=== PATIENT | female | born 1940 | race Caucasian/White ===

== ENCOUNTER 2018-03-01 07:58 | Emergency (ER) | payer MEDICARE, BC ==
[2018-03-01] MEDS: Nitroglycerin 0.4 MG Tab.SL SL ONE (08:14)
[2018-03-01] MEDS ORDERED: Sodium Chloride 0.9% 10 ML Syringe FLUSH PRN (08:20)
--- NOTE | 2018-03-01 08:44 | EDM.PDOC ---
ED HPI GENERAL MEDICAL PROBLEM - General Chief Complaint: Chest Pain Stated Complaint: CHEST PAIN Time Seen by Provider: 03/01/18 08:12 Source of Information: Reports: Patient, Family, RN, RN Notes Reviewed History Limitations: Reports: No Limitations - History of Present Illness INITIAL COMMENTS - FREE TEXT/NARRATIVE: Patient presents to the ED at [facility] with a 5 day history of on/off chest pain. She states it is upper left chest, bilateral jaw and left arm. She states it has progressively gotten worse. Last evening, it was worse. She took 4 baby ASA. This morning around 5:30, she awoke to the persistent pain. She states she took a "pain pill" and it seems to be somewhat better. No SOB. Patient denies any N/V/D. No focal neurological complaints. Onset: Gradual Onset Date: 02/25/18 Duration: Waxing/Waning Location: Reports: Chest Quality: Reports: Pressure Severity: Mild Upper Chest Pain Score (Numeric/FACES): 2 - Related Data Allergies Allergy/AdvReac Type Severity Reaction Status Date / Time [id number]-Nga-Khl Reductase AdvReac Joint Pain Verified 03/01/18 09:49 Inhibitor Home Meds: Home Meds Aspirin [Adult Low Dose Aspirin EC] 81 mg PO DAILY 11/06/13 [History] Clopidogrel [Plavix] 75 mg PO DAILY 11/06/13 [History] Hydrocodone/Acetaminophen [Lorcet 10-650 Tablet] 1 each PO BEDTIME PRN 11/06/13 [History] Metoprolol Tartrate 12.5 mg PO BID 11/06/13 [History] Omeprazole [Prilosec] 20 mg PO DAILY PRN 11/06/13 [History] Lisinopril 0.5 tab PO DAILY 04/03/14 [History] Amoxicillin 500 mg PO TID #15 tab 02/14/15 [Rx] Social & Family History - Tobacco Use Smoking Status *Q: Never Smoker - Alcohol Use Days Per Week of Alcohol Use: 0 - Recreational Drug Use Recreational Drug Use: No ED ROS GENERAL - Review of Systems Review Of Systems: See Below Constitutional: Denies: Fever, Chills, Weakness Respiratory: Denies: Shortness of Breath, Cough Cardiovascular: Reports: Chest Pain. Denies: Lightheadedness, Palpitations GI/Abdominal: Denies: Abdominal Pain, Nausea, Vomiting Skin: Reports: No Symptoms Neurological: Reports: No Symptoms. Denies: Dizziness, Headache, Numbness, Paresthesia, Tingling ED EXAM, GENERAL - Physical Exam Exam: See Below Exam Limited By: No Limitations General Appearance: Alert, No Apparent Distress Respiratory/Chest: No Respiratory Distress, Lungs Clear, Normal Breath Sounds Cardiovascular: Normal Peripheral Pulses, Regular Rate, Rhythm Peripheral Pulses: 2+: Radial (L), Radial (R) GI/Abdominal: Normal Bowel Sounds, Soft, Non-Tender Neurological: Alert, Oriented Skin Exam: Warm, Dry, Intact, Normal Color EKG INTERPRETATION EKG Date: 03/01/18 Time: 08:04 Rhythm: NSR Rate (Beats/Min): 85 [place]: Normal P-Wave: Present QRS: Normal ST-T: Normal QT: Normal RI/PQ Interval: 0.13 Comparison: No Change EKG Interpretation Comments: 1. Sinus Rhythm 2. IWMI, probably old Course - Vital Signs Last Recorded V/S: Last Vital Signs Temp 35.8 C 03/01/18 07:58 Pulse 84 03/01/18 08:45 Resp 16 03/01/18 08:20 BP 102/65 03/01/18 08:45 Pulse Ox 97 03/01/18 07:58 - Orders/Labs/Meds Orders: Active Orders 24 hr Category Date Time Status EKG 12 Lead [EKG Documentation Completion] [RC] STAT Care 03/01/18 08:19 Active Chest 2V [CR] Stat Exams 03/01/18 08:21 Taken Heparin Sodium Med 03/01/18 09:50 Once 4,000 units IVPUSH .BOLUS ONE Sodium Chloride 0.9% [Saline Flush] Med 03/01/18 08:20 Active 10 ml FLUSH ASDIRECTED PRN Peripheral IV Insertion Adult [OM.PC] Routine Oth 03/01/18 08:20 Ordered Medication Orders Heparin Sodium (Porcine) (Heparin Sodium) 4,000 units IVPUSH .BOLUS ONE Stop: 03/01/18 09:51 Sodium Chloride (Saline Flush) 10 ml FLUSH ASDIRECTED PRN PRN Reason: Keep Vein Open Labs: Laboratory Tests 03/01/18 03/01/18 Range/Units 08:28 08:28 WBC 10.0 (4.0-10.0) x10^3/uL RBC 4.35 (4.00-5.50) x10^6/uL Hgb 11.5 L D (12.0-16.0) g/dL Hct 36.2 (33.0-47.0) % MCV 83.2 D (78.0-93.0) fL MCH 26.4 (26.0-32.0) pg MCHC 31.8 L (32.0-36.0) g/dL RDW Coeff of Sil 16.7 H (10.0-15.0) % Plt Count 289 (130-400) x10^3/uL Neut % (Auto) 55.4 (50.0-80.0) % Lymph % (Auto) 26.6 (25.0-50.0) % [place] % (Auto) 10.3 (2.0-11.0) % Eos % (Auto) 7.0 H (0.0-4.0) % Baso % (Auto) 0.7 (0.2-1.2) % Sodium 140 (136-145) mmol/L Potassium 4.1 (3.5-5.1) mmol/L Chloride 106 (98-107) mmol/L Carbon Dioxide 24 (21-32) mmol/L Anion Gap 14.1 BUN 13 (7-18) mg/dL Creatinine 0.7 (0.55-1.02) mg/dL Est Cr Clr Drug Dosing TNP Estimated GFR (MDRD) > 60 Glucose 127 H (74-106) mg/dL Calcium 9.2 (8.5-10.1) mg/dL Corrected Calcium 9.84 (8.5-10.1) mg/dL Magnesium 2.1 (1.8-2.4) mg/dL Total Bilirubin 0.3 (0.2-1.0) mg/dL AST 17 (15-37) U/L ALT 17 (14-59) U/L Alkaline Phosphatase 151 H (46-116) U/L Creatine Kinase 40 (26-192) U/L Troponin I < 0.017 (<=0.056) ng/mL Total Protein 6.8 (6.4-8.2) g/dL Albumin 3.2 L (3.4-5.0) g/dL Globulin 3.6 Albumin/Globulin Ratio 0.89 Meds: Medications Generic Name Dose Route Start Last Admin Trade Name Freq PRN Reason Stop Dose Admin Heparin Sodium (Porcine) 4,000 units 03/01/18 09:50 Heparin Sodium IVPUSH 03/01/18 09:51 .BOLUS ONE Sodium Chloride 10 ml 03/01/18 08:20 Saline Flush FLUSH ASDIRECTED PRN Keep Vein Open Discontinued Medications Generic Name Dose Route Start Last Admin Trade Name Freq PRN Reason Stop Dose Admin Nitroglycerin 0.4 mg 03/01/18 08:20 Nitrostat SL 03/01/18 08:21 ONETIME ONE - Radiology Interpretation Free Text/Narrative:: CXR: No acute process - see scanned report in EMR Departure - Departure Time of Disposition: 09:57 Disposition: DC/Tfer to Acute Hospital 02 Reason for Transfer *Q: Other Condition: Good Clinical Impression: Unstable angina Chest pain Qualifiers: Chest pain type: unspecified Qualified Code(s): R07.9 - Chest pain, unspecified Forms: Interfacility Transfer [facility] ED Communication - ED Communication Date/Time Date: 03/01/18 Time Called: 09:40 - Discussed Case With (1) Discussed Case With (1): Admitting Provider (Dr. Zacarias, Cardiology. Report given. Patient accepted in transfer.) - Conversation Summary Admitting Provider Agreed to Patient's Admission: Yes Patient Aware of Amendments fo Care Plan: Yes - Problem List Review Problem List Initiated/Reviewed/Updated: Yes - My Orders Last 24 Hours: My Active Orders 03/01/18 08:19 EKG 12 Lead [EKG Documentation Completion] [RC] STAT 03/01/18 08:20 Sodium Chloride 0.9% [Saline Flush] 10 ml FLUSH ASDIRECTED PRN Peripheral IV Insertion Adult [OM.PC] Routine 03/01/18 08:21 Chest 2V [CR] Stat 03/01/18 09:50 Heparin Sodium 4,000 units IVPUSH .BOLUS ONE - Assessment/Plan Last 24 Hours: My Active Orders 03/01/18 08:19 EKG 12 Lead [EKG Documentation Completion] [RC] STAT 03/01/18 08:20 Sodium Chloride 0.9% [Saline Flush] 10 ml FLUSH ASDIRECTED PRN Peripheral IV Insertion Adult [OM.PC] Routine 03/01/18 08:21 Chest 2V [CR] Stat 03/01/18 09:50 Heparin Sodium 4,000 units IVPUSH .BOLUS ONE Assessment:: Unstable Angina Chest Pain r/o DC Plan: Case discussed with Dr. Zacarias, Cardiology. Patient will be sent to [facility] for cardiac cath today. Report given. Patient accepted in transfer. Patient will be sent via [facility] ground.
[2018-03-01 09:07] LABS: CHLORIDE,CL 106 mmol/L (98-107); SODIUM,NA 140 mmol/L (136-145)
[2018-03-01 10:13] VITALS: BP 140/87
[2018-03-01] MEDS: Heparin Sodium 5,000 Units/ML Vial IVPUSH ONE (10:13)
== END 2018-03-01 10:45 | disposition short-term general hospital (02) ==
LOC: VM.ED 07:58
DX: I20.0 Unstable angina (principal); Z88.8 Allergy status to other drugs, medicaments and biological substances; Z79.82 Long term (current) use of aspirin; Z79.899 Other long term (current) drug therapy
CPT/HCPCS: 36415; 71046; 80053; 82550; 83735; 84484; 85025; 93005; 96374; 99285; J1644

== ENCOUNTER 2022-08-28 14:42 | Emergency (ER) | payer MEDICARE, BC ==
[2022-08-28 14:55] VITALS: BP 123/74; PULSE 97
== END 2022-08-28 15:47 | disposition home or self-care (01) ==
LOC: VM.ED 14:42
DX: U07.1 COVID-19 (principal); I25.10 Atherosclerotic heart disease of native coronary artery without angina pectoris; I10 Essential (primary) hypertension; I25.2 Old myocardial infarction; Z79.82 Long term (current) use of aspirin; Z79.02 Long term (current) use of antithrombotics/antiplatelets; Z86.16 Personal history of COVID-19
CPT/HCPCS: 87651; 99283; U0002

== ENCOUNTER 2024-05-13 14:09 | Emergency (ER) | payer MEDICARE, BC ==
[2024-05-13] MEDS: Aspirin 81 MG Tab.Chew PO ONE (14:15)
[2024-05-13] MEDS ORDERED: Sodium Chloride 0.9% 10 ML Syringe FLUSH PRN (14:23)
[2024-05-13] MEDS: Nitroglycerin 0.4 MG Tab.SL SL ONE (14:26)
[2024-05-13 14:33] LABS: BASOPHILS ABSOLUTE AUTO 0.1 x10^3/uL (0.0-0.2); BASOPHILS PERCENT AUTO 0.4 % (0.2-1.2); EOSINOPHILS ABSOLUTE AUTO 0.4 x10^3/uL (0.0-0.5); EOSINOPHILS PERCENT AUTO 2.5 % (0.0-4.0); HEMATOCRIT 39.1 % (33.0-47.0); HEMOGLOBIN 12.4 g/dL (12.0-16.0); IMMATURE GRAN ABSOLUTE AUTO 0.05 x10^3/uL (0.00-0.07); LYMPHOCYTES ABSOLUTE AUTO 4.7 x10^3/uL (1.0-4.8); LYMPHOCYTES PERCENT AUTO 32.7 % (25.0-50.0); MEAN CORPUSCULAR HEMOGLOBIN 28.4 pg (26.0-32.0); MEAN CORPUSCULAR HGB CONC 31.7 g/dL (32.0-36.0); MEAN CORPUSCULAR VOLUME 89.5 fL (78.0-93.0); MONOCYTES ABSOLUTE AUTO 1.6 x10^3/uL (0.0-0.8); NEUTROPHILS ABSOLUTE AUTO 7.5 x10^3/uL (1.8-7.7); NEUTROPHILS PERCENT AUTO 52.6 % (50.0-80.0); PLATELET COUNT,PLT 247 x10^3/uL (130-400); RED BLOOD CELL COUNT 4.37 x10^6/uL (4.00-5.50); WHITE BLOOD CELL COUNT,WBC 14.2 x10^3/uL (4.0-10.0)
[2024-05-13 14:41] LABS: MONOCYTES PERCENT AUTO 11.4 % (2.0-11.0)
[2024-05-13 14:56] LABS: INR 0.9 (0.9-1.1); PROTHROMBIN TIME 9.6 SEC (8.9-11.5); PTT,PARTIAL THROMBOPLSTIN TIME 22.6 SEC (21.9-33.8)
[2024-05-13 14:59] LABS: ALANINE AMINOTRANSFERASE,ALT 37 U/L (14-59); ALBUMIN 3.4 g/dL (3.4-5.0); ALKALINE PHOSPHATASE 98 U/L (46-116); ASPARTATE AMNIOTRANSFERASE,AST 17 U/L (15-37); BILIRUBIN TOTAL 0.1 mg/dL (0.2-1.0); BLOOD UREA NITROGEN,BUN 25 mg/dL (7-18); CALCIUM 10.5 mg/dL (8.5-10.1); CARBON DIOXIDE,CO2 25 mmol/L (21-32); CHLORIDE,CL 107 mmol/L (98-107); GLUCOSE RANDOM 170 mg/dL (70-99); MAGNESIUM 1.8 mg/dL (1.8-2.4); PROTEIN TOTAL,TP 6.5 g/dL (6.4-8.2); SODIUM,NA 142 mmol/L (136-145)
[2024-05-13 15:01] LABS: C-REACTIVE PROTEIN < 0.50 mg/dL (<=0.50); ESTIMATED GFR 56 mL/min (>=60)
[2024-05-13] MEDS: Iopamidol 755 Mg/ML 100 ML Bottle IVPUSH ONE (16:57)
[2024-05-13] MEDS: cloNIDine 0.1 MG Tab PO ONE (18:51)
[2024-05-13 18:55] VITALS: BP 181/82; PULSE 74
== END 2024-05-13 17:58 | disposition home or self-care (01) ==
LOC: VM.ED 14:09
DX: I10 Essential (primary) hypertension (principal); R07.89 Other chest pain; I25.10 Atherosclerotic heart disease of native coronary artery without angina pectoris; Z86.16 Personal history of COVID-19; Z79.899 Other long term (current) drug therapy; Z79.891 Long term (current) use of opiate analgesic; Z88.2 Allergy status to sulfonamides; Z88.8 Allergy status to other drugs, medicaments and biological substances; Z79.82 Long term (current) use of aspirin
CPT/HCPCS: 71045; 71275; 80053; 83735; 84443; 84484; 85025; 85379; 85610; 85730; 86140; 93005; 99285; A9270; Q9967; 93010; 99284